=== PATIENT | female | born 1955 | race Native Hawaiian/Other Pacific Islander ===

== ENCOUNTER 2017-07-23 17:06 | Emergency (ER) | payer OTHER ==
[~2017-07-23] VITALS: Ht 152.4 cm; Wt 66.7 kg
[2017-07-23 17:56] VITALS: BP 149/96; TEMP 98
[2017-07-23] MEDS ORDERED: XANAX XR1 MG OR (17:58)
[2017-07-23] MEDS ORDERED: SIMV20TA2 PO (17:58)
[2017-07-23] MEDS ORDERED: ASPIR-8181 MG OR (17:59)
== END 2017-07-23 18:02 | disposition home or self-care (01) ==
LOC: ED 17:06
DX: H92.02 Otalgia, left ear (principal)

== ENCOUNTER 2018-09-08 14:33 | Emergency (ER) | payer OTHER ==
[~2018-09-08] VITALS: Ht 154.9 cm; Wt 68.0 kg
[~2018-09-08 14:33] MED LIST: ASPIR-8181 MG OR; SIMV20TA2 PO; XANAX XR1 MG OR
[2018-09-08 16:11] LABS: PLATELET COUNT 213 K/uL (152-353)
[2018-09-08 16:17] LABS: POTASSIUM 3.7 mmol/L (3.6-5.2)
[2018-09-08 18:15] VITALS: BP 138/59; TEMP 97.6
== END 2018-09-08 18:15 | disposition home or self-care (01) ==
LOC: ED 14:33
PROVIDERS: Emergency Medicine
DX: J02.9 Acute pharyngitis, unspecified (principal); R50.9 Fever, unspecified
CPT/HCPCS: 36415; 80053; 85027; 87502; 87651; 96365; 96372; 96375; 99284; J0696; J1610; J1885; J2930